=== PATIENT | female | born 1975 | race Two or more races ===

== ENCOUNTER 2025-02-27 14:37 | Emergency (ER) | payer BC, MEDICAID, SELFPAY ==
[2025-02-27 14:41] VITALS: BP 166/96; PULSE 80; RESP 20; TEMP 37.1; O2SAT 95
--- NOTE | 2025-02-27 14:43 | EDNOTE_ITS ---
<Statement entered by Viki Curry MD - 03/07/25 14:19> As co-signing physician, I was present and available for consult prn. I concur with the plan and care as documented by the midlevel provider. ED Wound/Laceration-RME/HPI General Chief Complaint: Wound/Laceration Stated Complaint: LAC TO L HAND Time Seen by Provider: 02/27/25 14:48 Arrival date/time: 02/27/25 14:37 49-year-old female presents to the Emergency Department today for complaint of laceration to left hand patient reports accidentally cut herself while opening a can Limitations: no limitations Related Data Home Medications ?Medication ?Instructions ?Recorded ?Confirmed hydrochlorothiazide 25 mg tablet 25 mg PO QDAY 9 07/27/18 sertraline 100 mg tablet 100 mg PO QDAY 07/27/1807/05 Previous Rx's ?Medication ?Instructions ?Recorded cyclobenzaprine 10 mg tablet 10 mg PO TID PRN muscle s pasm #30 07/27/18 tabs ibuprofen 800 mg tablet 800 mg PO TID PRN pain #30 t abs 07/27/18 diphenhydramine HCl 25 mg tablet 25 mg PO TID PRN ashok rgy symptoms 12/11/21 (Benadryl Allergy) #20 tabs albuterol sulfate 90 mcg/actuation 1 inh inhalation QI D PRN shortness 09/23/22 aerosol inhaler of breath or wheezing #8.5 g mauricio biiyhalpnmxeofc-rkuoqjtdfvsxieu-PD 5 ml PO Q6H PRN cou g #118 mL 09/23/22 2 mg-30 mg-10 mg/5 mL oral syrup (Bromfed DM) prednisone 20 mg tablet 60 mg PO QDAY #14 tabs 09/23 bacitracin 500 unit/gram topical 1 applic topical TID 7 days #28.4 02/27/25 ointment grams ibuprofen 600 mg tablet 600 mg PO Q6H #30 tabs 02/27 Allergies Allergy/AdvReac Type Severity Reaction Status Date / Time No Known Allergies Allergy Verified 02/27/25 14:38 Review of Systems Review of Systems Systems Reviewed: All systems reviewed, normal except as documented Constitutional Constitutional: Reports system reviewed and no additional complaints, except as documented, Denies fever(s) and Denies headache(s) Eyes Eyes: Reports system reviewed and no additional complaints, except as documented and Denies blurry vision ENT Ears, Nose, Mouth, and Throat: Reports system reviewed and no additional complaints, except as documented, Denies headache(s), Denies nasal congestion and Denies nasal discharge Cardiovascular Cardiovascular: Reports system reviewed and no additional complaints, except as documented, Denies chest pain and Denies dyspnea Respiratory Respiratory: Reports system reviewed and no additional complaints, except as documented, Denies chest congestion, Denies cough and Denies dyspnea Gastrointestinal Gastrointestinal: Reports system reviewed and no additional complaints, except as documented and Denies abdominal pain Integumentary/Breasts Skin/Breast: Reports system reviewed and no additional complaints, except as documented, Denies rash and Reports wounds (Laceration left hand) Neurologic Neurologic: Reports system reviewed and no additional complaints, except as documented, Reports as per HPI and Denies headache(s) Past Medical History Past Medical History CARDIAC: Positive Cardiac Disorders and Hypertension; Negative Congestive Heart Failure RESPIRATORY: Positive Asthma; Negative Chronic Obstructive Pulmonary Disease (COPD) GENITOURINARY: Negative Renal Disease ENDOCRINE: Negative Diabetes Mellitus Type 1 or Diabetes Mellitus Type 2 PSYCHO/SOCIAL: Positive Depression Surgical History SURGICAL: Positive Abdominal Surgery Social History SMOKING STATUS: Never smoker ED Exam General Limitations: Present no limitations General appearance: Present alert and in no apparent distress Head Head exam: Present atraumatic Eye Eye exam: Present normal appearance, PERRL and EOMI ENT ENT exam: Present normal exam, normal oropharynx and mucous membranes moist Neck Neck exam: Present normal inspection, full ROM and trachea midline Chest Chest inspection: Present normal inspection and symmetric chest wall rise Respiratory Respiratory exam: Present normal lung sounds bilaterally Cardiovascular Cardiovascular exam: Present regular rate, normal rhythm and normal heart sounds Abdominal Exam Abdominal exam: Present soft and normal bowel sounds Extremities Exam Extremities exam: Present full ROM, tenderness and normal capillary refill Back Exam Back exam: Present normal inspection and full ROM Neurological Exam Neurological exam: Present alert, oriented X3, CN II-XII intact, normal gait and reflexes normal; Absent motor sensory deficit Psychiatric Psychiatric exam: Present normal affect and normal mood Skin Skin exam: Present other (laceration left hand ) Course Quality Measures none Orders Category Date Time Status Set Up Suture Tray STAT Care 02/27/25 14:44 Completed Wound Care NOW Care 02/27/25 14:44 Completed Lidocaine 1% 20 ml [Xylocaine 1% 20 ML] Med 02/27/25 14:44 Discontinued 20 ml INFL X1 ONE TET,DIP/PERT AC (Adult)-Tdap [Boostrix Adult (Tdap) Med 02/27/25 14:44 Discontinued Vacc] 0.5 ml IMI .ONCE ONE Vital Signs Vital signs: Vital Signs Temperature 98.8 F 02/27/25 14:41 Pulse Rate 80 02/27/25 14:41 Respiratory Rate 20 02/27/25 14:41 Blood Pressure 166/96 H 02/27/25 14:41 Pulse Oximetry (%) 95 02/27/25 14:41 Oxygen Delivery Method Room Air 02/27/25 14:41 PROCEDURES: Laceration Laceration 1: Site: hand Side (If applicable): left Size (cm): 3 Description: linear Depth: simple, single layer Local Anesthetic: lidocaine 1% Amount of anesthesia used (mL): 6 Pre-repair: wound explored and irrigated extensively Skin layer closed with: nylon Suture size (cm): 4-0 Wound / Laceration MDM Narrative MDM Narrative:: 49-year-old female presents to the Emergency Department today for complaint of laceration to left hand patient reports accidentally cut herself while opening a can On exam patient has laceration to left hand no evidence of tendon or ligamentous injury Wound irrigated copiously laceration repaired no active bleeding time of discharge Patient discharged home in no distress to follow-up with primary care doctor in the next 24 to 48 hours and for any worsening symptoms to return to the ER immediately Patient data External records reviewed:: [facility] previous records Clinical information provided by:: patient Social determinants that could affect healthcare access:: none Patient has the following chronic illnesses:: See history How is presenting disease/condition affected by chronic disease/condition?: uneffected by Evaluation data The following diagnostics were reviewed and interpreted by me:: other (specify) Lab and/or radiology exams considered but not ordered:: Considered not indicated Interpretation Summary: N/A Medications / Prescriptions Medications or Prescriptions considered but not ordered:: Given Medication administrations:: Medication Administration History Discontinued Medications Diphtheria/Tetanus/Acell Pertussis (Diphth,Pertuss(Acell),Tet Vac 0.5 Ml Syr- Adult) 0.5 ml IMi .ONCE ONE Stop: 02/27/25 14:45 Last Admin: 02/27/25 14:51 Dose: 0.5 ml Documented By: MARIA EUGENIA Lidocaine HCl (Lidocaine Hcl 1% 20 Ml Vial) 20 ml INFL X1 ONE Stop: 02/27/25 14:45 Last Admin: 02/27/25 14:51 Dose: 20 ml Documented By: MARIA EUGENIA Comments: used by provider Given Consultations Consultation(s) initiated? (list below): No Diagnosis Wound Differential Diagnosis: laceration, abrasion and avulsion of skin Most likely diagnosis given after review of the tests above:: Laceration Admission Indicated Admission indicated?: not indicated Admission Request Was there a request for admission?: No Disposition Plan Disposition Plan: Discharge Discharge Attestation Discharge Attestation: The patient and all family members were given an opportunity to ask questions and understood the discharge instructions. Discharge instructions specifically effects, indications for sooner follow up or return to the emergency department, and the expected course of current diagnosis. Patient condition: Stable Discharge Plan Plan Patient Disposition: HOME (Self Care) Discharge Disposition comment: Stable Prescriptions/Referrals Prescriptions/Med Rec: New bacitracin 500 unit/gram ointment 1 applic topical TID 7 Days Qty: 28.4 0RF ibuprofen 600 mg tablet 600 mg PO Q6H Qty: 30 0RF No Action sertraline 100 mg Tablet 100 mg PO QDAY hydrochlorothiazide 25 mg Tablet 25 mg PO QDAY cyclobenzaprine 10 mg tablet 10 mg PO TID PRN (Reason: muscle spasm) Qty: 30 0RF ibuprofen 800 mg tablet 800 mg PO TID PRN (Reason: pain) Qty: 30 0RF diphenhydramine HCl [Benadryl Allergy] 25 mg tablet 25 mg PO TID PRN (Reason: allergy symptoms) Qty: 20 0RF drmltcwdrvjdfnp-zbrvfykzp-QL [Bromfed DM] 2-30-10 mg/5 mL syrup 5 ml PO Q6H PRN (Reason: coug) Qty: 118 0RF albuterol sulfate 90 mcg/actuation HFA aerosol inhaler 1 inh inhalation QID PRN (Reason: shortness of breath or wheezing) Qty: 8.5 0RF prednisone 20 mg tablet 60 mg PO QDAY Qty: 14 0RF Taper: Prednisone Taper 60 mg DAILY for 4 Days and 0 Hour 10 mg DAILY for 2 Days and 0 Hour 5 mg DAILY for 7 Days and 0 Hour Problem List Clinical Impression: Laceration of hand, left Patient/Caregiver Discharge Instructions Education Materials: ED Laceration: All Closures Additional Instructions: Please follow up with your primary care doctor in the next 24-48hrs for any worsening symptoms return here immediately Please have suture removed in 10 days Print Language: Bruneian Stand Alone Forms: Kym Award Info., Work/School Release, Patient Portal Info Letter Vaccines Vaccines Given During Stay: TDaP PA/[employer]AD[employer] Supervising Physician PA/[employer] Supervising Physician: Dr. Curry
[2025-02-27] MEDS: DIPHTH,PERTUSS(ACELL),TET VAC 0.5 ML SYR- ADULT IMi (14:51)
[2025-02-27] MEDS: LIDOCAINE HCL 1% 20 ML VIAL INFL (14:51)
== END 2025-02-27 16:03 | disposition home or self-care (01) ==
PROVIDERS: Emergency Provider Emergency Medicine; PCP Family Medicine
DX: S61.412A Laceration without foreign body of left hand, initial encounter (principal); W26.8XXA Contact with other sharp object(s), not elsewhere classified, initial encounter; Z23 Encounter for immunization
CPT/HCPCS: 12002; 90471; 90715; 99281; J3490

== ENCOUNTER 2025-03-30 18:30 | Emergency (ER) | payer BC, MEDICAID, SELFPAY ==
[2025-03-30 20:10] VITALS: BP 143/84; PULSE 73; RESP 18; TEMP 36.4; O2SAT 99; BMI 43.9
--- NOTE | 2025-03-30 20:31 | PD.EDLOWEX ---
Lower Extremity Injury RME/HPI General Chief Complaint: Extremity Injury, Lower Stated Complaint: RIGHT KNEE PAIN Time Seen by Provider: 03/30/25 20:28 Arrival date/time: 03/30/25 18:30 49F with history of asthma, BARRIOS, and psych presents to ED with R knee pain after she was walking down some stairs and heard a pop. Limitations: no limitations Related Data Home Medications ?Medication ?Instructions ?Recorded ?Confirmed hydrochlorothiazide 25 mg tablet 25 mg PO QDAY 07/27/18 07/27/18 sertraline 100 mg tablet 100 mg PO QDAY 07/27/18 07/27/18 Previous Rx's ?Medication ?Instructions ?Recorded cyclobenzaprine 10 mg tablet 10 mg PO TID PRN muscle spasm #30 07/27/18 tabs ibuprofen 800 mg tablet 800 mg PO TID PRN pain #30 tabs 07/27/18 diphenhydramine HCl 25 mg tablet 25 mg PO TID PRN allergy symptoms 12/11/21 (Benadryl Allergy) #20 tabs albuterol sulfate 90 mcg/actuation 1 inh inhalation QID PRN shortness 09/23/22 aerosol inhaler of breath or wheezing #8.5 grams ixdxkbugvrqltju-sqkstkylzlaxzpq-UU 5 ml PO Q6H PRN coug #118 mL 09/23/22 2 mg-30 mg-10 mg/5 mL oral syrup (Bromfed DM) prednisone 20 mg tablet 60 mg PO QDAY #14 tabs 09/23/22 ibuprofen 600 mg tablet 600 mg PO Q6H #30 tabs 02/27/25 Allergies Allergy/AdvReac Type Severity Reaction Status Date / Time No Known Allergies Allergy Verified 02/27/25 14:38 Review of Systems Review of Systems Systems Reviewed: All systems reviewed, normal except as documented Musculoskeletal Musculoskeletal: Reports as per HPI and Reports arthralgias Past Medical History Past Medical History CARDIAC: Positive Cardiac Disorders and Hypertension; Negative Congestive Heart Failure RESPIRATORY: Positive Asthma; Negative Chronic Obstructive Pulmonary Disease (COPD) GENITOURINARY: Negative Renal Disease ENDOCRINE: Negative Diabetes Mellitus Type 1 or Diabetes Mellitus Type 2 PSYCHO/SOCIAL: Positive Depression Surgical History SURGICAL: Positive Abdominal Surgery Social History SMOKING STATUS: Never smoker ED Exam General Limitations: Present no limitations General appearance: Present alert and in no apparent distress Head Head exam: Present atraumatic Neck Neck exam: Present normal inspection, full ROM and trachea midline Chest Chest inspection: Present normal inspection and symmetric chest wall rise Extremities Exam Extremities exam: Present full ROM Expanded Lower Extremity Exam Knee exam: Present full ROM (R) and swelling Neurological Exam Neurological exam: Present alert and oriented X3 Psychiatric Psychiatric exam: Present normal affect and normal mood Skin Skin exam: Present warm, dry, intact and normal color Course Quality Measures none Orders Category Date Time Status Crutches .NOW Care 03/30/25 20:28 Active nilda wrap [Splint / Immobilizer] STAT Care 03/30/25 20:28 Active Dexamethasone Inj [Decadron Inj] Med 03/30/25 20:30 Once 10 mg PO X1 ONE HYDROcodone*/APAP 5/325 [Udell 5/325] Med 03/30/25 20:30 Once 1 tab PO X1 ONE Vital Signs Vital signs: Vital Signs Temperature 97.6 F 03/30/25 20:10 Pulse Rate 73 03/30/25 20:10 Respiratory Rate 18 03/30/25 20:10 Blood Pressure 143/84 H 03/30/25 20:10 Pulse Oximetry (%) 99 03/30/25 20:10 Oxygen Delivery Method Room Air 03/30/25 20:10 O2 at 99% on RA and WNLs Extremity Injury, Lower MDM Narrative MDM Narrative:: 49F with history of asthma, BARRIOS, and psych presents to ED with R knee pain after she was walking down some stairs and heard a pop. Physical exam reveals R knee swelling. ROM intact, though painful. Gait intact. Patient is afebrile, calm, and alert. Given NILDA, meds, crutches, and counseling center director. Patient data External records reviewed:: [facility] previous records Clinical information provided by:: patient Social determinants that could affect healthcare access:: mental health Patient has the following chronic illnesses:: asthma, BARRIOS, and psych How is presenting disease/condition affected by chronic disease/condition?: uneffected by Evaluation data The following diagnostics were reviewed and interpreted by me:: other (specify) (none) Lab and/or radiology exams considered but not ordered:: not ordered Interpretation Summary: n/a Medications / Prescriptions Medications or Prescriptions considered but not ordered:: ordered Medication administrations:: Medication Administration History Hydrocodone Bitart/Acetaminophen (Hydrocodone/Apap 5/325 Tablet) 1 tab PO X1 ONE Stop: 03/30/25 20:31 Dexamethasone Sodium Phosphate (Dexamethasone Sod Phos Inj 10 Mg/Ml Vial) 10 mg PO X1 ONE Stop: 03/30/25 20:31 above Consultations Consultation(s) initiated? (list below): No Diagnosis Extremity Injury, Lower Differential Diagnosis: ankle sprain and strain, acute internal derangement of knee, fracture of femur, fracture of hip, puncture wound of foot, fracture of toe and ankle fracture Most likely diagnosis given after review of the tests above:: acute internal derangement of knee Admission Indicated Admission indicated?: not indicated Admission Request Was there a request for admission?: No Disposition Plan Disposition Plan: Discharge Discharge Attestation Discharge Attestation: The patient and all family members were given an opportunity to ask questions and understood the discharge instructions. Discharge instructions specifically effects, indications for sooner follow up or return to the emergency department, and the expected course of current diagnosis. Patient condition: Stable Discharge Plan Plan Patient Disposition: HOME (Self Care) Discharge Disposition comment: Stable Prescriptions/Referrals Prescriptions/Med Rec: No Action sertraline 100 mg Tablet 100 mg PO QDAY hydrochlorothiazide 25 mg Tablet 25 mg PO QDAY cyclobenzaprine 10 mg tablet 10 mg PO TID PRN (Reason: muscle spasm) Qty: 30 0RF ibuprofen 800 mg tablet 800 mg PO TID PRN (Reason: pain) Qty: 30 0RF diphenhydramine HCl [Benadryl Allergy] 25 mg tablet 25 mg PO TID PRN (Reason: allergy symptoms) Qty: 20 0RF yyernlmetgncpxf-vvdnhgrxm-UW [Bromfed DM] 2-30-10 mg/5 mL syrup 5 ml PO Q6H PRN (Reason: coug) Qty: 118 0RF albuterol sulfate 90 mcg/actuation HFA aerosol inhaler 1 inh inhalation QID PRN (Reason: shortness of breath or wheezing) Qty: 8.5 0RF prednisone 20 mg tablet 60 mg PO QDAY Qty: 14 0RF Taper: Prednisone Taper 60 mg DAILY for 4 Days and 0 Hour 10 mg DAILY for 2 Days and 0 Hour 5 mg DAILY for 7 Days and 0 Hour ibuprofen 600 mg tablet 600 mg PO Q6H Qty: 30 0RF Problem List Clinical Impression: Acute internal derangement of knee Patient/Caregiver Discharge Instructions Education Materials: How Your Knee Works Additional Instructions: Please follow-up with PCP within 24-48 hours and return immediately if symptoms worsen. If problem persists, recommend outpatient PT and/or MRI follow-up. In the meantime, rest, use ice/heat, and/or compression. Print Language: Frisian Stand Alone Forms: Work/School Release, Patient Portal Info Letter [id number] CONSULTANT Supervising Physician [id number] CONSULTANT Supervising Physician: Dr. Masters
[2025-03-30] MEDS: HYDROcodone/APAP 5/325 TABLET 1 TAB PO (20:39)
== END 2025-03-30 20:45 | disposition home or self-care (01) ==
LOC: SERX 20:40
PROVIDERS: Emergency Provider Emergency Medicine; PCP Family Medicine
DX: M23.91 Unspecified internal derangement of right knee (principal)
CPT/HCPCS: 99282; J8540; A9270

== ENCOUNTER 2025-04-29 14:51 | Emergency (ER) | payer BC, MEDICAID, SELFPAY ==
[2025-04-29 15:24] VITALS: BP 153/88; PULSE 77; RESP 18; TEMP 36.8; O2SAT 96; BMI 42.1
--- NOTE | 2025-04-29 15:34 | XR_ITS ---
Examination: Knee, right, 3 views Technique: Knee AP, lateral, oblique 3 views Date and time of exam: April 29, 2025, 1602 hours INDICATIONS: Patient fell 3 weeks ago, injury to the knee, knee pain FINDINGS: No acute fracture Large knee effusion Moderate tricompartment osteoarthritis Chronic subluxation mild medially of the femoral condyles relative to the tibial plateaus IMPRESSION: Moderate tricompartment osteoarthritis Large knee effusion, seen with internal derangement of the knee, consider MRI knee without contrast follow-up
--- NOTE | 2025-04-29 15:34 | XR_ITS ---
Examination: Duplex scan of the lower extremity, unilateral right Date and time of exam: April 29, 2025, 1611 hours INDICATIONS: Right knee pain 3 weeks Technique: Duplex scan of the extremity veins using B-mode/grayscale imaging and Doppler spectral analysis and color flow Attention is directed to internal echogenicity, compression and augmentation involving these veins, color flow assessment, spectral analysis Findings: Major deep venous structures in the extremity demonstrate normal course and caliber. There is no evidence of deep vein thrombosis. Normal color flow and spectral analysis Impression: Negative for DVT..
[2025-04-29] MEDS: KETOROLAC INJ 30 MG/ML VIAL IM (16:01)
--- NOTE | 2025-04-29 17:16 | EDNOTE_ITS ---
ED Extremity Problem RME/HPI General Chief complaint: Extremity Problem,Nontraumatic Stated complaint: Right knee pain X 3 weeks Time Seen by Provider: 04/29/25 15:04 Arrival date/time: 04/29/25 14:51 50-year-old female presents to the Emergency Department today stating she has right knee pain in the medial aspect ongoing for the last 3 weeks patient reports developed pain when she was walking up the stairs Limitations: no limitations Related Data Home Medications ?Medication ?Instructions ?Recorded ?Confirmed hydrochlorothiazide 25 mg tablet 25 mg PO QDAY 9 07/27/18 sertraline 100 mg tablet 100 mg PO QDAY 07/27/1807/05 Previous Rx's ?Medication ?Instructions ?Recorded cyclobenzaprine 10 mg tablet 10 mg PO TID PRN muscle s pasm #30 07/27/18 tabs ibuprofen 800 mg tablet 800 mg PO TID PRN pain #30 t abs 07/27/18 diphenhydramine HCl 25 mg tablet 25 mg PO TID PRN ashok rgy symptoms 12/11/21 (Benadryl Allergy) #20 tabs albuterol sulfate 90 mcg/actuation 1 inh inhalation QI D PRN shortness 09/23/22 aerosol inhaler of breath or wheezing #8.5 g mauricio jngypvsomhiqzwl-nsxhpdturoexjmo-RR 5 ml PO Q6H PRN cou g #118 mL 09/23/22 2 mg-30 mg-10 mg/5 mL oral syrup (Bromfed DM) prednisone 20 mg tablet 60 mg PO QDAY #14 tabs 09/23 ibuprofen 600 mg tablet 600 mg PO Q6H #30 tabs 02/27 hydrocodone 5 mg-acetaminophen 325 1 tab PO BID PRN pa in #10 tabs 04/29/25 mg tablet ibuprofen 800 mg tablet 800 mg PO TID PRN pain #30 t abs 04/29/25 Allergies Allergy/AdvReac Type Severity Reaction Status Date / Time No Known Allergies Allergy Verified 04/29/25 14:56 Review of Systems Review of Systems Systems Reviewed: All systems reviewed, normal except as documented Constitutional Constitutional: Reports system reviewed and no additional complaints, except as documented, Denies fever(s) and Denies headache(s) Eyes Eyes: Reports system reviewed and no additional complaints, except as documented and Denies blurry vision ENT Ears, Nose, Mouth, and Throat: Reports system reviewed and no additional complaints, except as documented, Denies headache(s), Denies nasal congestion and Denies nasal discharge Cardiovascular Cardiovascular: Reports system reviewed and no additional complaints, except as documented, Denies chest pain and Denies dyspnea Respiratory Respiratory: Reports system reviewed and no additional complaints, except as documented, Denies chest congestion, Denies cough and Denies dyspnea Gastrointestinal Gastrointestinal: Reports system reviewed and no additional complaints, except as documented and Denies abdominal pain Musculoskeletal Musculoskeletal: Reports system reviewed and no additional complaints, except as documented, Reports abnormal gait, Reports arthralgias, Denies deformity, Reports joint swelling, Denies numbness, Reports stiffness and Denies tingling Integumentary/Breasts Skin/Breast: Reports system reviewed and no additional complaints, except as documented and Denies rash Neurologic Neurologic: Reports system reviewed and no additional complaints, except as documented, Reports as per HPI, Reports abnormal gait, Denies headache(s), Denies numbness and Denies tingling Past Medical History Past Medical History CARDIAC: Positive Cardiac Disorders and Hypertension; Negative Congestive Heart Failure RESPIRATORY: Positive Asthma; Negative Chronic Obstructive Pulmonary Disease (COPD) GENITOURINARY: Negative Renal Disease ENDOCRINE: Negative Diabetes Mellitus Type 1 or Diabetes Mellitus Type 2 PSYCHO/SOCIAL: Positive Depression Surgical History SURGICAL: Positive Abdominal Surgery Social History SMOKING STATUS: Never smoker ED Exam General Limitations: Present no limitations General appearance: Present alert and in no apparent distress Head Head exam: Present atraumatic, normocephalic and normal inspection Eye Eye exam: Present normal appearance, PERRL and EOMI; Absent conjunctival injection ENT ENT exam: Present normal exam, normal oropharynx and mucous membranes moist Neck Neck exam: Present normal inspection, full ROM and trachea midline Chest Chest inspection: Present normal inspection and symmetric chest wall rise Respiratory Respiratory exam: Present normal lung sounds bilaterally Cardiovascular Cardiovascular exam: Present regular rate, normal rhythm and normal heart sounds Abdominal Exam Abdominal exam: Present soft and normal bowel sounds; Absent distention, tenderness, guarding, rebound or rigidity Extremities Exam Extremities exam: Present full ROM, tenderness, normal capillary refill and joint swelling; Absent pedal edema or calf tenderness Back Exam Back exam: Present normal inspection and full ROM Neurological Exam Neurological exam: Present alert, oriented X3 and CN II-XII intact Psychiatric Psychiatric exam: Present normal affect and normal mood Skin Skin exam: Present warm, dry, intact and normal color Course Quality Measures none Orders Category Date Time Status US venous doppler LE RT Stat Exams 04/29/25 15:34 Completed XR knee RT 3V Stat Exams 04/29/25 15:34 Completed Ketorolac Inj [Toradol Inj] Med 04/29/25 15:34 Discontinued 30 mg IM X1 ONE Vital Signs Vital signs: Vital Signs Temperature 98.3 F 04/29/25 15:24 Pulse Rate 77 04/29/25 15:24 Respiratory Rate 18 04/29/25 15:24 Blood Pressure 153/88 H 04/29/25 15:24 Pulse Oximetry (%) 96 04/29/25 15:24 Oxygen Delivery Method Room Air 04/29/25 15:24 O2 saturation 96% room air within normal limits Extremity Problem MDM Narrative MDM Narrative:: 50-year-old female presents to the Emergency Department today stating she has right knee pain in the medial aspect ongoing for the last 3 weeks patient reports developed pain when she was walking up the stairs Clinically patient has mild swelling and pain to the right knee worse with movement Imaging of the right knee obtained no acute fracture or dislocation noted Ultrasound obtained no acute DVT noted Patient instructed to follow-up with PCP as soon as possible request MRI for worsening symptoms or concerns to return to ER meetly for further evaluation Patient discharged home in no distress to follow-up with primary care doctor in the next 24 to 48 hours and for any worsening symptoms to return to the ER immediately Patient data External records reviewed:: [facility] previous records Clinical information provided by:: patient Social determinants that could affect healthcare access:: none Patient has the following chronic illnesses:: See history How is presenting disease/condition affected by chronic disease/condition?: exacerbated by Evaluation data The following diagnostics were reviewed and interpreted by me:: radiology exam (s) Lab and/or radiology exams considered but not ordered:: Radiology obtained Interpretation Summary: Reviewed by me Medications / Prescriptions Medications or Prescriptions considered but not ordered:: Given Medication administrations:: Medication Administration History Discontinued Medications Ketorolac Tromethamine (Ketorolac Inj 30 Mg/Ml Vial) 30 mg IM X1 ONE Stop: 04/29/25 15:35 Last Admin: 04/29/25 16:01 Dose: 30 mg Documented By: Given Consultations Consultation(s) initiated? (list below): No Diagnosis Extremity Problem Differential Diagnosis: other Most likely diagnosis given after review of the tests above:: Knee pain right Admission Indicated Admission indicated?: not indicated Admission Request Was there a request for admission?: No Disposition Plan Disposition Plan: Discharge Discharge Attestation Discharge Attestation: The patient and all family members were given an opportunity to ask questions and understood the discharge instructions. Discharge instructions specifically effects, indications for sooner follow up or return to the emergency department, and the expected course of current diagnosis. Patient condition: Stable Discharge Plan Plan Patient Disposition: HOME (Self Care) Discharge Disposition comment: Stable Prescriptions/Referrals Prescriptions/Med Rec: New ibuprofen 800 mg tablet 800 mg PO TID PRN (Reason: pain) Qty: 30 0RF hydrocodone-acetaminophen 5-325 mg tablet 1 tab PO BID MDD 10mg PRN (Reason: pain) Qty: 10 0RF No Action sertraline 100 mg Tablet 100 mg PO QDAY hydrochlorothiazide 25 mg Tablet 25 mg PO QDAY cyclobenzaprine 10 mg tablet 10 mg PO TID PRN (Reason: muscle spasm) Qty: 30 0RF ibuprofen 800 mg tablet 800 mg PO TID PRN (Reason: pain) Qty: 30 0RF diphenhydramine HCl [Benadryl Allergy] 25 mg tablet 25 mg PO TID PRN (Reason: allergy symptoms) Qty: 20 0RF cworzexyctmdjfm-dcojctedk-IX [Bromfed DM] 2-30-10 mg/5 mL syrup 5 ml PO Q6H PRN (Reason: coug) Qty: 118 0RF albuterol sulfate 90 mcg/actuation HFA aerosol inhaler 1 inh inhalation QID PRN (Reason: shortness of breath or wheezing) Qty: 8.5 0RF prednisone 20 mg tablet 60 mg PO QDAY Qty: 14 0RF Taper: Prednisone Taper 60 mg DAILY for 4 Days and 0 Hour 10 mg DAILY for 2 Days and 0 Hour 5 mg DAILY for 7 Days and 0 Hour ibuprofen 600 mg tablet 600 mg PO Q6H Qty: 30 0RF Referrals: No Primary/Family,Physician [Primary Care Provider] - In 1 week Problem List Clinical Impression: Sprain of left knee Patient/Caregiver Discharge Instructions Education Materials: ED Knee Sprain Additional Instructions: Please follow up with your primary care doctor in the next 24-48hrs for any worsening symptoms return here immediately Print Language: Yakut Stand Alone Forms: Natural Dentist Info., Work/School Release, Patient Portal Info Letter PA/[employer] Supervising Physician PA/[employer] Supervising Physician: Dr. cuello
[2025-04-29 17:44] VITALS: BP 177/83; PULSE 75; RESP 19; TEMP 36.8; O2SAT 98
== END 2025-04-29 17:45 | disposition home or self-care (01) ==
PROVIDERS: Emergency Provider Family Medicine
DX: S83.92XA Sprain of unspecified site of left knee, initial encounter (principal); X58.XXXA Exposure to other specified factors, initial encounter; Y93.01 Activity, walking, marching and hiking
CPT/HCPCS: 73562; 93971; 96372; 99283; J1885